=== PATIENT | female | born 1970 | race Caucasian/White ===

== ENCOUNTER 2017-08-19 13:40 | Day surgery (SDC) | payer OTHER ==
[2017-08-19] MEDS ORDERED: LACTATED RINGER'S 1,000 ML IV* (15:00)
[2017-08-19] MEDS ORDERED: CEFAZOLIN 2 GM/50 ML (PMX) 50 ML IVPB (15:00)
[2017-08-19] MEDS ORDERED: PROPOFOL 20 ML (16:38)
[2017-08-19] MEDS ORDERED: ONDANSETRON 4 MG INJ (16:39)
[2017-08-19] MEDS ORDERED: MIDAZOLAM 1 MG/ML 2 ML INJ (16:39)
[2017-08-19] MEDS ORDERED: METOCLOPRAMIDE 10 MG INJ (16:39)
[2017-08-19] MEDS ORDERED: FENTAnyl 50 MCG/ML VIAL (16:39)
[2017-08-19] MEDS ORDERED: CEFAZOLIN 1 GM INJ (16:40)
[2017-08-19] MEDS ORDERED: KETOROLAC 30 MG INJ (16:41)
[2017-08-19] MEDS ORDERED: ROPIVACAINE 0.2% 20 ML VIAL (17:17)
[2017-08-19] MEDS ORDERED: HYDROmorphONE (0.2 MG/ML) 10ML SYG IV (17:30)
[2017-08-19] MEDS ORDERED: OXYCODONE/ACETAMINOPHEN (5/325) TAB PO ×2 (17:30)
[2017-08-19] MEDS ORDERED: DIPHENHYDRAMINE 50 MG INJ IV (17:30)
[2017-08-19] MEDS ORDERED: MEPERIDINE 25 MG INJ IV (17:30)
[2017-08-19] MEDS ORDERED: ONDANSETRON 4 MG INJ IV (17:30)
[2017-08-19] MEDS: HYDROmorphONE (0.2 MG/ML) 10ML SYG IV ×2 (18:28→18:44)
== END 2017-08-19 19:56 | disposition home or self-care (01) ==
LOC: SDS 13:40
DX: S62.324 Displaced fracture of shaft of fourth metacarpal bone, right hand (principal)
CPT/HCPCS: 26546; 73130-RT